=== PATIENT | female | born 1990 | race American Indian/Alaskan Native ===

== ENCOUNTER 2016-10-07 20:08 | Emergency (ER) | payer OTHER ==
[2016-10-07 20:59] LABS: Bilirubin,Urine NEG (Negative); Blood,Urine NEG (Negative); Ketones,Urine NEG (Negative); Leukocyte Esterase,Urine NEG (Negative); Mucus,Urine FEW /HPF; Nitrite,Urine NEG (Negative); Protein,Urine <15 mg/dL mg/dL (Negative); Urobilinogen,Urine < 2.0 mg/dL (<2.0)
--- NOTE | 2016-10-07 22:42 | Emergency Department Report ---
ED Back Pain/Injury HPI - General Chief Complaint: Back Pain/Injury Stated Complaint: LOWER BACK PAIN Time Seen by Provider: 10/07/16 22:06 Source: patient Limitations: No Limitations - History of Present Illness Initial Comments: 18-year-old female past medical history morbid obesity presents with 1 week of mild lower back pain. Patient denies any fevers chills nausea vomiting no abdominal pain denies any dysuria no increased urinary frequency. Denies any direct trauma no recent falls. 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 Denies any hematuria. Patient states that it feels like a muscle spasm intermittently. Patient is fully ambulatory during my exam. MD Complaint: back pain Onset/Timin -: week(s) Similar Symptoms Previously: No Severity: moderate Severity scale (0 -10): 6 Quality: aching Consistency: constant Improves With: none Worsens With: none Context: turning/twisting, bending - Related Data Previous Rx's Medication Instructions Recorded Last Taken Type Cyclobenzaprine [Flexeril] 10 mg PO TID PRN #15 tablet 10/07/16 Unknown Rx Naproxen [Naprosyn TAB] 500 mg PO BID PRN #20 tablet 10/07/16 Unknown Rx Allergies Allergy/AdvReac Type Severity Reaction Status Date / Time No Known Allergies Allergy Unverified 06/06/15 19:46 ED Review of Systems ROS: Stated complaint: LOWER BACK PAIN Other details as noted in HPI Constitutional: denies: chills, fever Eyes: denies: eye pain, eye discharge, vision change ENT: denies: ear pain, throat pain Respiratory: denies: cough, shortness of breath, wheezing Cardiovascular: denies: chest pain, palpitations Endocrine: no symptoms reported Gastrointestinal: denies: abdominal pain, nausea, diarrhea Genitourinary: denies: urgency, dysuria, discharge Musculoskeletal: denies: back pain, joint swelling, arthralgia Skin: denies: rash, lesions Neurological: denies: headache, weakness, paresthesias Psychiatric: denies: anxiety, depression Hematological/Lymphatic: denies: easy bleeding, easy bruising ED Past Medical Hx - Past Medical History Previous Medical History?: No - Surgical History Past Surgical History?: No - Social History Smoking Status: Never Smoker Substance Use Type: Alcohol - Medications Home Medications: Home Medications Medication Instructions Recorded Confirmed Last Taken Type Cyclobenzaprine [Flexeril] 10 mg PO TID PRN #15 tablet 10/07/16 Unknown Rx Naproxen [Naprosyn TAB] 500 mg PO BID PRN #20 tablet 10/07/16 Unknown Rx ED Physical Exam - General Limitations: No Limitations General appearance: alert, in no apparent distress - Head Head exam: Present: atraumatic, normocephalic - Eye Eye exam: Present: normal appearance, PERRL, EOMI - ENT ENT exam: Present: mucous membranes moist - Neck Neck exam: Present: normal inspection - Respiratory Respiratory exam: Present: normal lung sounds bilaterally. Absent: respiratory distress - Cardiovascular Cardiovascular Exam: Present: regular rate, normal rhythm. Absent: systolic murmur, diastolic murmur, rubs, gallop - GI/Abdominal GI/Abdominal exam: Present: soft, normal bowel sounds - Extremities Exam Extremities exam: Present: normal inspection, full ROM - Back Exam Back exam: Present: normal inspection, full ROM, paraspinal tenderness (mild L- spine paraspinal discomfort on palpation. No midline tenderness in cervical thoracic or lumbar spine.) - Neurological Exam Neurological exam: Present: alert, oriented X3, CN II-XII intact, normal gait - Psychiatric Psychiatric exam: Present: normal affect, normal mood - Skin Skin exam: Present: warm, dry, intact, normal color. Absent: rash ED Course Vital Signs 10/07/16 20:21 Temperature 98.7 F Pulse Rate 78 Respiratory 18 Rate Blood Pressure 136/77 O2 Sat by Pulse 100 Oximetry ED Medical Decision Making - Medical Decision Making A/P: Musculoskeletal pain, lower back pain 1-urinalysis unremarkable, patient not 2-pain is reproducible on palpation of lumbar paraspinal area, patient is fully ambulatory strength 5 out of 5 all extremities, distal reflexes are intact. No direct trauma. No saddle paresthesias no upper or lower extremity paresthesias. 3-spastic component to discomfort 4-naproxen and Flexeril when necessary, follow-up with orthopedics and primary care Critical care attestation.: If time is entered above; I have spent that time in minutes in the direct care of this critically ill patient, excluding procedure time. ED Disposition Clinical Impression: Lower back pain Qualifiers: Chronicity: acute Back pain laterality: bilateral Sciatica presence: without sciatica Qualified Code(s): M54.5 - Low back pain Disposition: DC-01 TO HOME OR SELFCARE Is pt being admited?: No Does the pt Need Aspirin: No Condition: Stable Instructions: Acute Low Back Pain (ED), Back Pain (ED) Prescriptions: Cyclobenzaprine [Flexeril] 10 mg PO TID PRN #15 tablet PRN Reason: Muscle Spasm Naproxen [Naprosyn TAB] 500 mg PO BID PRN #20 tablet PRN Reason: Pain Referrals: LELE TENORIO MD [Staff Physician] - 3-5 Days [facility] [Outside] - 3-5 Days Forms: Work/School Release Form(ED) Time of Disposition: 22:43
[2016-10-07] MEDS ORDERED: FLEXERIL PO ONE (22:50)
[2016-10-07 23:12] VITALS: BP 133/81
== END 2016-10-07 23:22 | disposition home or self-care (01) ==
LOC: ED 20:08
DX: M54.5 Low back pain (principal); E66.01 Morbid (severe) obesity due to excess calories
CPT/HCPCS: 81001; 81025; 87086; 99283

== ENCOUNTER 2020-02-17 21:13 | Emergency (ER) | payer SELFPAY ==
[2020-02-17 22:08] VITALS: BP 156/74
--- NOTE | 2020-02-17 22:40 | XRay Report ---
RIGHT ANKLE 3 VIEWS INDICATION / CLINICAL INFORMATION: Twisted right ankle on Friday while cleaning at work. Right ankle pain. COMPARISON: None available. FINDINGS: BONES / JOINT(S): There is a moderate plantar calcaneal spur. There is a tiny spur at the insertion o f the Achilles tendon on the calcaneus. There are mild degenerative changes involving the tibiotalar joint and dorsum of the midfoot. I see no evidence of fracture or dislocation. SOFT TISSUES: There is mild soft tissue swelling overlying the lateral malleolus. ADDITIONAL FINDINGS: None. IMPRESSION: No acute osseous abnormality. Signer Name: Len Llanos MD Signed: 02/17/2020 10:35 PM Workstation Name: [id number]
[2020-02-17] MEDS ORDERED: predniSONE 20 MG TAB PO ONE (23:55)
[2020-02-17] MEDS ORDERED: traMADol 50 MG TAB PO ONE (23:55)
--- NOTE | 2020-02-18 00:13 | Emergency Department Report ---
ED Lower Extremity HPI - General Chief Complaint: Extremity Injury, Lower Stated Complaint: LEFT ANKLE PAIN Time Seen by Provider: 02/17/20 23:32 Source: patient Mode of arrival: Ambulatory Limitations: No Limitations - History of Present Illness Initial Comments: Patient is a 29-year-old female who presents for right ankle pain x3 days. 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 Her pain is 6/10 exacerbated by prolonged standing and performing work duties. Pain is relieved by offloading and rest. There is no abrasion laceration or bleeding there is minimal swelling. There is no numbness or tingling. Patient is ambulatory with steady gait. Patient denies other injury or trauma MD Complaint: ankle injury - Related Data Previous Rx's Medication Instructions Recorded Last Taken Type Cyclobenzaprine [Flexeril] 10 mg PO TID PRN #15 tablet 10/07/16 Unknown Rx Naproxen [Naprosyn TAB] 500 mg PO BID PRN #20 tablet 10/07/16 Unknown Rx Naproxen 500 mg PO Q12H PRN #20 tablet 08/11/19 Unknown Rx Naproxen [Naprosyn] 500 mg PO BID PRN #30 tablet 02/18/20 Unknown Rx Allergies Allergy/AdvReac Type Severity Reaction Status Date / Time No Known Allergies Allergy Unverified 06/06/15 19:46 ED Review of Systems ROS: Stated complaint: LEFT ANKLE PAIN Other details as noted in HPI Constitutional: denies: chills, fever Eyes: denies: eye pain, eye discharge, vision change ENT: denies: ear pain, throat pain Respiratory: denies: cough, shortness of breath, wheezing Cardiovascular: denies: chest pain, palpitations Endocrine: no symptoms reported Gastrointestinal: denies: abdominal pain, nausea, diarrhea Genitourinary: denies: urgency, dysuria, discharge Musculoskeletal: other (right medial ankle tenderness ) Skin: denies: rash, lesions Neurological: denies: headache, weakness, paresthesias Psychiatric: denies: anxiety, depression Hematological/Lymphatic: denies: easy bleeding, easy bruising ED Past Medical Hx - Past Medical History Previous Medical History?: Yes Additional medical history: Morbid Obesity - Surgical History Past Surgical History?: No - Social History Smoking Status: Never Smoker Substance Use Type: None - Medications Home Medications: Home Medications Medication Instructions Recorded Confirmed Last Taken Type Cyclobenzaprine [Flexeril] 10 mg PO TID PRN #15 tablet 10/07/16 Unknown Rx Naproxen [Naprosyn TAB] 500 mg PO BID PRN #20 tablet 10/07/16 Unknown Rx Naproxen 500 mg PO Q12H PRN #20 tablet 08/11/19 Unknown Rx Naproxen [Naprosyn] 500 mg PO BID PRN #30 tablet 02/18/20 Unknown Rx ED Physical Exam - General Limitations: No Limitations General appearance: alert, in no apparent distress - Head Head exam: Present: atraumatic, normocephalic - Eye Eye exam: Present: normal appearance, EOMI Pupils: Present: normal accommodation - ENT ENT exam: Present: mucous membranes moist - Neck Neck exam: Present: normal inspection, full ROM. Absent: tenderness - Respiratory Respiratory exam: Present: normal lung sounds bilaterally. Absent: respiratory distress, wheezes, stridor - Cardiovascular Cardiovascular Exam: Present: regular rate, normal rhythm, normal heart sounds. Absent: systolic murmur, diastolic murmur, rubs, gallop - GI/Abdominal GI/Abdominal exam: Present: soft, normal bowel sounds. Absent: distended, tenderness - Rectal Rectal exam: Present: deferred - Extremities Exam Extremities exam: Present: full ROM, tenderness ( right medial ankle ) - Expanded Lower Extremity Exam Right Ankle exam: Present: full ROM, tenderness (right medial ankle ), swelling. Absent: abrasion, laceration, ecchymosis, deformity, crepidus, dislocation, erythema, anterior draw sign Foot/Toe exam: Present: full ROM, tenderness, calcaneal tenderness. Absent: swelling, abrasion, laceration, ecchymosis, deformity, crepidus, dislocation, erythema, amputation, puncture wound, foreign body, tenderness at base of 5th metatarsal Neuro vascular tendon exam: Absent: pulse deficit, motor deficit, sensory deficit, tendon deficit, foot drop Gait: Positive: observed and limited by pain - Back Exam Back exam: Present: normal inspection, full ROM. Absent: tenderness, vertebral tenderness - Neurological Exam Neurological exam: Present: alert, oriented X3, CN II-XII intact, normal gait, reflexes normal. Absent: motor sensory deficit - Expanded Neurological Exam Expanded Patient oriented to: Present: person, place, time Speech: Present: fluid speech Motor strength exam: RLE: 5, LLE: 5 DTR: ankle (R): 2+, ankle (L): 2+ Best Eye Response ([place]): (4) open spontaneously Best Motor Response ([place]): (6) obeys commands Best Verbal Response ([place]): (5) oriented [place] Total: 15 - Psychiatric Psychiatric exam: Present: normal affect, normal mood - Skin Skin exam: Present: warm, dry, intact, normal color. 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 Right ankle pain. COMPARISON: None available. FINDINGS: BONES / JOINT(S): There is a moderate plantar calcaneal spur. There is a tiny s pur at the insertion of the Achilles tendon on the calcaneus. There are mild degenerative changes involving the tibiotalar joint and dorsum of the midfoot. I see no evidence of fracture or dislocation. SOFT TISSUES: There is mild soft tissue swelling overlying the lateral malleolus. ADDITIONAL FINDINGS: None. IMPRESSION: No acute osseous abnormality. Signer Name: Lele Llanos MD Signed: 02/17/2020 9:35 PM Workstation Name: [id number] - Medical Decision Making right ankle Xray: IMPRESSION: No acute osseous abnormality. , distal pulse intact, neg thompsons test, mild swelling, pt is ambulatory, plan, antione wrap, rice therapy, NSAIDS, follow up with pcp in 2-3 days, return to [facility] if symptoms worsen. Critical care attestation.: If time is entered above; I have spent that time in minutes in the direct care of this critically ill patient, excluding procedure time. ED Disposition Clinical Impression: Left ankle strain Qualifiers: Encounter type: initial encounter Qualified Code(s): S96.912A - Strain of unspecified muscle and tendon at ankle and foot level, left foot, initial encounter Disposition: TO HOME OR SELFCARE Is pt being admited?: No Does the pt Need Aspirin: No Condition: Stable Instructions: Ankle Exercises (GEN), Ankle Sprain (ED) Prescriptions: Naproxen [Naprosyn] 500 mg PO BID PRN #30 tablet PRN Reason: Pain Referrals: LELE TENORIO MD [Staff Physician] - 3-5 Days CHRISTIANO TAFOYA MD [Referring] - 3-5 Days Forms: Work/School Release Form(ED)
== END 2020-02-18 00:25 | disposition home or self-care (01) ==
LOC: ED 21:13
DX: S96.911A Strain of unspecified muscle and tendon at ankle and foot level, right foot, initial encounter (principal); Z79.899 Other long term (current) drug therapy; X50.1XXA Overexertion from prolonged static or awkward postures, initial encounter; Y93.89 Activity, other specified; Y92.89 Other specified places as the place of occurrence of the external cause; Y99.8 Other external cause status
CPT/HCPCS: 73610; 99283; J7512